=== PATIENT | male | born 1970 ===

== ENCOUNTER → 2023-08-14 14:22 | Outpatient (AMB) | payer OTHER, SELFPAY ==
[2023-08-14 14:27] VITALS: BP 138/68; PULSE 75; RESP 18; TEMP 36.4; O2SAT 94; BMI 38.2
--- NOTE | 2023-08-14 14:27 | MHC.OFFWIV ---
Intake Vital Signs 08/14/23 14:27 Height 6 ft 4 in Weight 314 lb BMI 38.2 BP 138/68 Blood Pressure Location Lt brachial Position Sitting Respiration 18 Pulse 75 Pulse Source Pulse Oximeter Temp 97.6 F Temp Source Oral Pulse Oximetry (%) 94 Oxygen Delivery Method Room Air Intake Visit Reasons: ear issue Intake Note: Ear pain for 6 months, painful bump on left ear. congestion with green phlegm for one month. Patient Tobacco Use Status: Current everyday Tobacco user [employer] Required: No Allergies Penicillins Allergy (Severe, Verified 08/14/23 14:33) swelling clindamycin Allergy (Severe, Uncoded 08/14/23 14:33) swelling Medication List - Last Reconciled 08/14/23 by Yadira Mitchell PA-C furosemide mg PO gabapentin 800 mg PO TID thiamine HCl (vitamin B1) 100 mg PO DAILY HPI ear issue HPI Details Pt is a 53 year old male who presents today with complaints of bilateral ear pain. He states that his ears have been itchy and painful x 6 months on and off. Last night he states that the pain got worse. He states that his ears get hot, irritated, bumpy and sometimes itchy. At times it feels like he gets painful pimples on his outer ears and he has to pop them to get relief. He states that he made this appointment because last night he popped 1 of the pimples on his earlobe and now the skin is hot and somewhat tender. He states that both of his ears are bothering him and irritated but the left 1 is painful. He states he has a seen his pcp at [facility] in the past and he states told him it was ok and just a pimple. No sinus pain or pressure. No fever or chills. He has not been using anything for his sx. [facility] Medical History (Updated 08/14/23 @ 14:56 by Yadira Mitchell PA-C) Eczema of both external ears Social History Patient Tobacco Use Status: Current everyday Tobacco user Physical Exam Vital Signs: Last Vital Signs Temp 97.6 F 08/14/23 14:27 Pulse 75 08/14/23 14:27 Resp 18 08/14/23 14:27 BP 138/68 08/14/23 14:27 Pulse Ox 94 08/14/23 14:27 Oxygen Delivery Method Room Air 04/11/24 14:27 BMI result Body Mass Index 38.2 Const Orientation/consciousness: patient oriented x3 HEENT Other: Hearing is grossly normal. The skin on the external pinna bilaterally is flaky, papular and somewhat erythematous. The left earlobe is noted to have a small scab and is erythematous and tender. No abscess noted. TMs are WNL bilaterally. Canals are clear. Sinuses are nontender. Nasal mucosa WNL. Oral mucosa moist. Neck Thyroid: Thyroid normal Lymphatic: no lymphadenopathy noted Resp Auscultation: clear to auscultation bilaterally Cardio Rate: regular rate Rhythm: regular rhythm Heart sounds: S1 normal heart sound present and S2 normal heart sound present Neuro General: patient oriented x3, gait normal and no focal motor deficits Assessment & Plan Assessment & Plan (1) Eczema of both external ears: Code(s): H60.543 - Acute eczematoid otitis externa, bilateral Plan: We will treat with triamcinolone cream. Advised to apply sparingly to the affected area twice a day. We did discuss that prolonged use of steroid cream can cause atrophy of the skin. I have encouraged him to follow up with his PCP. (2) Cellulitis of left external ear: Code(s): H60.12 - Cellulitis of left external ear Plan: We will start on doxycycline. Discussed risks and benefits and adverse effects of the medication including GI upset and a photosensitivity rash. Advised him to be seen within the next 1-2 weeks by his PCP or sooner if anything worsens or changes. Patient understands and agrees with the plan. Medications: New doxycycline hyclate 100 mg PO BID 10 days 20 tabs 0RF triamcinolone acetonide 0.025% apply to affected area bid as directed x 14 days 1 appl topical BID 14 days 80 grams 0RF Coding Level of Care Code New Pt Level 3 (85001) Diagnoses Eczema of both external ears H60.543 Cellulitis of left external ear H60.12
== END ==
PROVIDERS: Visit Provider Physician Assistant
DX: H60.543 Acute eczematoid otitis externa, bilateral (principal); H60.12 Cellulitis of left external ear
CPT/HCPCS: 99203